=== PATIENT | female | born 1980 | race Caucasian/White ===

== ENCOUNTER 2017-05-01 18:03 | Emergency (ER) | payer SELFPAY ==
[~2017-05-01] VITALS: Ht 162.6 cm; Wt 52.2 kg
[2017-05-01 18:30] VITALS: BP 113/61
--- NOTE | 2017-05-01 18:40 | PHYS DOC ---
Adult General Chief Complaint Chief Complaint: FOREIGN BODY VAGINA [facility] HPI Patient is a 36 year old female presents the ED complaining of vaginal foreign body. Patient states on Monday night she placed a tampon and when she woke up she could not final tampon to remove. Patient does not know if she got the middle night remove the tampon. Complains of some abdominal cramping. States she is currently on her menstrual cycle. Denies fever, nausea/vomiting, vaginal discharge, dysuria, weakness, STD exposure, chest pain or shortness of breath. Review of Systems Review of Systems Constitutional: Denies fever or chills [] Eyes: Denies change in visual acuity, redness, or eye pain [] HENT: Denies nasal congestion or sore throat [] Respiratory: Denies cough or shortness of breath [] Cardiovascular: No additional information not addressed in HPI [] GI: Denies abdominal pain, nausea, vomiting, bloody stools or diarrhea [] : Denies dysuria or hematuria [] Musculoskeletal: Denies back pain or joint pain [] Integument: Denies rash or skin lesions [] Neurologic: Denies headache, focal weakness or sensory changes [] Endocrine: Denies polyuria or polydipsia [] All other systems were reviewed and found to be within normal limits, except as documented in this note. Allergies Allergies Allergies Coded Allergies Type Severity Reaction Last Updated Verified No Known Drug Allergies 05/01/17 No Physical Exam Physical Exam Constitutional: Well developed, well nourished, no acute distress, non-toxic appearance. [] HENT: Normocephalic, atraumatic, bilateral external ears normal, oropharynx moist, no oral exudates, nose normal. [] Eyes: PERRLA, EOMI, conjunctiva normal, no discharge. [] Neck: Normal range of motion, no tenderness, supple, no stridor. [] Cardiovascular:Heart rate regular rhythm, no murmur [] Lungs & Thorax: Bilateral breath sounds clear to auscultation [] Abdomen: Bowel sounds normal, soft, no tenderness, no masses, no pulsatile masses. [] EXAM: NORMAL EXTERNAL EXAM. MENSTRUAL CYCLE BLOOD NOTED. CERVIX NORMAL OS CLOSED. NO CMT. NO VISIBLE FOREIGN BODY. Skin: Warm, dry, no erythema, no rash. [] Back: No tenderness, no CVA tenderness. [] Extremities: No tenderness, no cyanosis, no clubbing, ROM intact, no edema. [] Neurologic: Alert and oriented X 3, normal motor function, normal sensory function, no focal deficits noted. [] Psychologic: Affect normal, judgement normal, mood normal. [] Current Patient Data Vital Signs Vital Signs Date Time Temp Pulse Resp B/P (MAP) Pulse Ox O2 Delivery O2 Flow Rate FiO2 05/01/17 18:30 97.8 84 16 94 Room Air 97.8 EKG EKG [] Radiology/Procedures Radiology/Procedures [] Course & Med Decision Making Course & Med Decision Making Pertinent Labs and Imaging studies reviewed. (See chart for details) []Normal exam. No foreign body. Patient states she probably removed it in the middle of the night and forgot. Patient is currently on her menstrual cycle. No abdominal pain, fever or systemic symptoms. Discussed signs and symptoms to return to the ED. 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 Patient understands and agrees with plan. Dragon Disclaimer Dragon Disclaimer This electronic medical record was generated, in whole or in part, using a voice recognition dictation system. Departure Departure Impression: Primary Impression: Foreign body of vagina Disposition: HOME, SELF-CARE Condition: STABLE Referrals: UNKNOWN PCP NAME (PCP) WANG CERDA MD Patient Instructions: Vaginal Foreign Body-Brief ELAINA EDWARDS May 01, 2017 18:40
[2017-05-06] MEDS ORDERED: METR500T8 PO (16:37)
[2017-05-06] MEDS ORDERED: SULF1TAB24 PO (16:37)
== END 2017-05-01 19:05 | disposition home or self-care (01) ==
LOC: ER 18:03
DX: T19.2XXA Foreign body in vulva and vagina, initial encounter (principal); X58.XXXA Exposure to other specified factors, initial encounter; Y93.89 Activity, other specified; Y92.89 Other specified places as the place of occurrence of the external cause; Y99.8 Other external cause status
CPT/HCPCS: 99283

== ENCOUNTER 2020-03-14 17:40 | Emergency (ER) | payer SELFPAY ==
[~2020-03-14] VITALS: Ht 162.6 cm; Wt 55.0 kg
[~2020-03-14 17:40] MED LIST: METR-34 PO; SULF1TAB24 PO
[2020-03-14 17:45] VITALS: BP 143/72
[2020-03-14 18:10] LABS: BILIRUBIN,URINE MODERATE (NEG); CLARITY,URINE TURBID; COLOR,URINE RED; NITRITE,URINE POSITIVE (NEG); PH,URINE 5.5 (<5.0-8.0); PROTEIN,URINE >=300 mg/dL (NEG-TRACE)
[2020-03-14 18:27] LABS: BACTERIA,URINE 0 /HPF (0-FEW); RBC,URINE TNTC /HPF (0-2); WBC,URINE TNTC /HPF (0-4)
[2020-03-14] MEDS ORDERED: PHEN100T82 PO (18:32)
[2020-03-14] MEDS ORDERED: CEPH-264 PO (18:32)
--- NOTE | 2020-03-14 18:32 | PHYS DOC ---
Past Medical History Past Medical History: No Pertinent History (SHANDRA LYNN AESTHETICS INSTRUCTOR) Past Surgical History: Tubal ligation, Other Additional Past Surgical Histo: R ACL REPAIR (SHANDRA LYNN AESTHETICS INSTRUCTOR) Smoking Status: Current Every Day Smoker Alcohol Use: Occasionally Drug Use: None, Marijuana (SHANDRA LYNN APRN) General Adult EDM: Chief Complaint: BLOOD IN URINE HPI: HPI: Patient is a 39 year old female who presents with 3 hours ago she was at work and began having urinary frequency when she would wipe after going the bathroom she is also blood on the toilet paper. She states that she is also having some burning in her low mid abdomen and it does burn and hurt at the end of her stream. She states she is having a lot of frequency and pressure in her low mid abdomen. Patient denies nausea, vomiting, back pain, diarrhea, fever, dizziness, headache, vaginal discharge, chest pain, shortness of air. She denies any medical history and denies taking any medications. (SHANDRA LYNN AESTHETICS INSTRUCTOR) Review of Systems: Review of Systems: Constitutional: Denies fever or chills. [] Eyes: Denies change in visual acuity. [] HENT: Denies nasal congestion or sore throat. [] Respiratory: Denies cough or shortness of breath. [] Cardiovascular: Denies chest pain or edema. [] GI: + Low mid abdominal pain, denies nausea, vomiting, bloody stools or diarrhea. [] : + dysuria. [] Musculoskeletal: Denies back pain or joint pain. [] Integument: Denies rash. [] Neurologic: Denies headache, focal weakness or sensory changes. [] Endocrine: Denies polyuria or polydipsia. [] Lymphatic: Denies swollen glands. [] Psychiatric: Denies depression or anxiety. [] (SHANDRA LYNN AESTHETICS INSTRUCTOR) Heart Score: Risk Factors: Risk Factors: DM, Current or recent (<one month) smoker, HTN, HLP, family history of CAD, obesity. Risk Scores: Score 0 - 3: 2.5% MACE over next 6 weeks - Discharge Home Score 4 - 6: 20.3% MACE over next 6 weeks - Admit for Clinical Observation Score 7 - 10: 72.7% MACE over next 6 weeks - Early Invasive Strategies (SHANDRA LYNN APRN) Allergies: Allergies: Allergies Coded Allergies Type Severity Reaction Last Updated Verified No Known Drug Allergies 05/01/17 No (SHANDRA LYNN APRN) Physical Exam: PE: Constitutional: Well developed, well nourished, no acute distress, non-toxic appearance. [] HENT: Normocephalic, atraumatic, bilateral external ears normal, oropharynx moist, no oral exudates, nose normal. [] Eyes: PERRLA, EOMI, conjunctiva normal, no discharge. [] Neck: Normal range of motion, no tenderness, supple, no stridor. [] Cardiovascular:Heart rate regular rhythm, no murmur [] Lungs & Thorax: Bilateral breath sounds clear to auscultation [] Abdomen: Bowel sounds normal, soft, no tenderness, no masses, no pulsatile masses. [] Skin: Warm, dry, no erythema, no rash. [] Back: No tenderness, no CVA tenderness. [] Extremities: No tenderness, no cyanosis, no clubbing, ROM intact, no edema. [] Neurologic: Alert and oriented X 3, normal motor function, normal sensory function, no focal deficits noted. [] Psychologic: Affect normal, judgement normal, mood normal. Normal physical exam [] (SHANDRA LYNN APRN) Current Patient Data: Labs: Laboratory Tests Test 03/14/20 18:06 POC Urine HCG, Qualitative Hcg negative (Negative) (SHANDRA LYNN APRN) EKG: EKG: [] (SHANDRA LYNN APRN) Radiology/Procedures: Radiology/Procedures: [] (SHANDRA LYNN APRN) Course & Med Decision Making: Course & Med Decision Making Pertinent Labs and Imaging studies reviewed. (See chart for details) See HPI. Abdomen is soft and nontender. There is no CVA tenderness. Alert and oriented x4. Ambulatory with a steady gait. Speaks in full clear sentences. Urinalysis shows urinary tract infection with nitrites. Patient be placed on Keflex antibiotic and Pyridium. [] (SHANDRA LYNN APRN) Dragon Disclaimer: Dragon Disclaimer: This electronic medical record was generated, in whole or in part, using a voice recognition dictation system. (SHANDRA LYNN APRN) Departure Departure Impression: Primary Impression: Urinary tract infection Qualified Codes: N30.01 - Acute cystitis with hematuria Disposition: DC HOME SELF CARE/HOMELESS Condition: STABLE Referrals: UNKNOWN PCP NAME (PCP) Patient Instructions: Urinary Tract Infection Additional Instructions: Follow-up with primary care provider. Take medications as prescribed and with food. Drink plenty of fluids. Scripts Phenazopyridine Hcl (PYRIDIUM) 100 Mg Tablet 1 TAB PO TID for urinary discomfort for 3 Days, #9 TAB 0 Refills Prov: SHANDRA LYNN APRN 03/14/20 Cephalexin (KEFLEX) 500 Mg Capsule 1 CAP PO BID for 7 Days, #14 CAP 0 Refills Prov: SHANDRA LYNN APRN 03/14/20 Attending Signature Attending Signature I have reviewed the PA/PHYSIATRIST's note and plan of care. I was available for consultation as needed during the patient's visit in the emergency department. I agree with the clinical impression, plan, and disposition. (AZRA CHOE DO) SHANDRA LYNN APRN Mar 14, 2020 18:32 AZRA CHOE DO Mar 14, 2020 18:44
[2020-03-14] MEDS ORDERED: CEPHALEXIN 250 MG CAPSULE. PO ONE (18:45)
[2020-03-14] MEDS ORDERED: PHENAZOPYRIDINE 200 MG TABLET. PO ONE (19:00)
== END 2020-03-14 19:04 | disposition home or self-care (01) ==
LOC: ER 17:40
DX: N30.01 Acute cystitis with hematuria (principal); R10.30 Lower abdominal pain, unspecified; R20.8 Other disturbances of skin sensation; F17.200 Nicotine dependence, unspecified, uncomplicated; F12.90 Cannabis use, unspecified, uncomplicated; Z98.51 Tubal ligation status; Z98.890 Other specified postprocedural states
CPT/HCPCS: 81001; 81025; 87086; 99283

== ENCOUNTER 2020-06-05 02:32 | Emergency (ER) | payer BC ==
[~2020-06-05] VITALS: Ht 162.6 cm; Wt 52.2 kg
[~2020-06-05 02:32] MED LIST changes: +CEPH-264 PO; +PHEN100T82 PO
[2020-06-05 02:50] LABS: BILIRUBIN,URINE NEGATIVE (NEG); CLARITY,URINE CLOUDY; COLOR,URINE YELLOW; NITRITE,URINE POSITIVE (NEG); PH,URINE 6.5 (<5.0-8.0); PROTEIN,URINE >=300 mg/dL (NEG-TRACE)
[2020-06-05 02:56] LABS: BACTERIA,URINE MANY /HPF (0-FEW); RBC,URINE 20-40 /HPF (0-2); WBC,URINE 20-40 /HPF (0-4)
[2020-06-05] MEDS ORDERED: CEPH-264 PO (03:12)
[2020-06-05] MEDS ORDERED: PHEN-318 PO (03:12)
--- NOTE | 2020-06-05 03:12 | PHYS DOC ---
Past Medical History Past Medical History: No Pertinent History Past Surgical History: Tubal ligation, Other Additional Past Surgical Histo: R ACL REPAIR Smoking Status: Current Every Day Smoker Alcohol Use: Occasionally Drug Use: Marijuana General Adult EDM: Chief Complaint: PAIN ON URINATION HPI: HPI: 40-year-old female presents with report of dysuria x2 to 3 days. Patient reports some associated nausea and vomiting. Patient reports she took a friend's "green antibiotic pills and Azo. Denies fever or chills. Denies flank pain. Denies trauma. Patient reports history of tubal ligation. Review of Systems: Review of Systems: Constitutional: Denies fever or chills Eyes: Denies redness or eye pain HENT: Denies nasal congestion or sore throat Respiratory: Denies cough or shortness of breath Cardiovascular: Denies chest pain or palpitations GI:Reports suprapubic abdominal pain, nausea, and vomiting : Reports dysuria; denies hematuria Musculoskeletal: Denies back pain or joint pain Integument: Denies rash or skin lesions Neurologic: Denies headache, focal weakness or sensory changes Complete systems were reviewed and found to be within normal limits, except as documented in this note. Allergies: Allergies: Allergies Coded Allergies Type Severity Reaction Last Updated Verified No Known Drug Allergies 05/01/17 No Physical Exam: PE: Constitutional: Well developed, well nourished, no acute distress, non-toxic appearance HENT: Normocephalic, atraumatic Eyes: Conjunctiva normal, no discharge Neck: Normal range of motion, no tenderness, supple Lungs & Thorax: No respiratory distress, equal chest rise and fall Abdomen: Soft, suprapubic tenderness Skin: Warm, dry, no erythema, no rash Extremities: No tenderness, ROM intact, no edema Neurologic: Alert and oriented X 3, no focal deficits noted Psychologic: Affect normal, judgment normal Current Patient Data: Labs: Laboratory Tests Test 06/05/20 02:45 06/05/20 02:46 Urine Collection Type Unknown Urine Color Yellow Urine Clarity Cloudy Urine pH 6.5 (<5.0-8.0) Urine Specific [place] 1.015 (1.000-1.030) Urine Protein >=300 mg/dL (NEG-TRACE) Urine Glucose (UA) Negative mg/dL (NEG) Urine Ketones (Stick) Negative mg/dL (NEG) Urine Blood Large (NEG) Urine Nitrite Positive (NEG) Urine Bilirubin Negative (NEG) Urine Urobilinogen Dipstick 1.0 mg/dL (0.2 mg/dL) Urine Leukocyte Esterase Moderate (NEG) Urine RBC 20-40 /HPF (0-2) Urine WBC 20-40 /HPF (0-4) Urine Squamous Epithelial Cells Mod /LPF Urine Bacteria Many /HPF (0-FEW) Urine Mucus Mod /LPF POC Urine HCG, Qualitative Hcg negative (Negative) Vital Signs: Vital Signs Date Time Temp Pulse Resp B/P (MAP) Pulse Ox O2 Delivery O2 Flow Rate FiO2 06/05/20 02:43 98.7 89 134/68 (90) 98 Room Air 98.7 EKG: EKG: [] Radiology/Procedures: Radiology/Procedures: [] Course & Med Decision Making: Course & Med Decision Making Pertinent Lab studies reviewed. (See chart for details) Patient presents with HPI and physical exam concerning for acute UTI. Symptomatic treatment provided. UA with signs of infection. Urine negative. Empiric antibiotic provided. Patient stable for discharge with outpatient follow-up with PCP. Discussed findings and plan with patient, who acknowledges understanding and agreement. Mya Disclaimer: Spotjournal Disclaimer: This electronic medical record was generated, in whole or in part, using a voice recognition dictation system. Departure Departure Impression: Primary Impression: Urinary tract infection Qualified Codes: N30.00 - Acute cystitis without hematuria Additional Impression: Nausea Disposition: 01 DC HOME SELF CARE/HOMELESS Condition: STABLE Referrals: NO PCP (PCP) Patient Instructions: Clear Liquid Diet, Oahv-yb-Fxit, Nausea and Vomiting, Wuqc-gn-Nfpr, Urinary Tract Infection, Owdf-ue-Evjz Scripts Ondansetron (ONDANSETRON ODT) 4 Mg Tab.rapdis 1 TAB PO PRN Q6-8HRS PRN for NAUSEA, #16 TAB Prov: AZRA CHOE DO 06/05/20 Cephalexin (KEFLEX) 500 Mg Capsule 500 MG PO TID for 7 Days, #21 CAP Prov: AZRA CHOE DO 06/05/20 Phenazopyridine Hcl (PYRIDIUM) 200 Mg Tablet 200 MG PO Q8HRS PRN for DYSURIA for 2 Days, #6 TAB Prov: AZRA CHOE DO 06/05/20 AZRA CHOE DO Jun 05, 2020 03:12
[2020-06-05] MEDS ORDERED: ONDA4TAB12 PO (03:16)
[2020-06-05] MEDS ORDERED: ONDANSETRON ODT 4 MG TAB.RAPDIS. PO ONE (03:30)
[2020-06-05 03:49] VITALS: BP 157/93
[2020-06-05] MEDS ORDERED: CEPHALEXIN 250 MG CAPSULE. PO ONE (04:00)
[2020-06-05] MEDS ORDERED: PHENAZOPYRIDINE 200 MG TABLET. PO ONE (04:00)
== END 2020-06-05 03:48 | disposition home or self-care (01) ==
LOC: ER 02:32
DX: N30.00 Acute cystitis without hematuria (principal); R30.0 Dysuria; R11.2 Nausea with vomiting, unspecified; R10.2 Pelvic and perineal pain; R11.0 Nausea; F12.90 Cannabis use, unspecified, uncomplicated; F17.200 Nicotine dependence, unspecified, uncomplicated; Z98.51 Tubal ligation status; Z98.890 Other specified postprocedural states
CPT/HCPCS: 81001; 81025; 87086; 99284

== ENCOUNTER 2021-02-03 06:28 | Day surgery (SDC) | payer BC ==
[~2021-02-03] VITALS: Ht 162.6 cm; Wt 57.0 kg
[~2021-02-03 06:28] MED LIST changes: +HYDROmorphone 2 MG/ML VIAL IVP PRN; +IV RINGERS,LACTATED 1000ML 1,000 ML IV SCH; +MORPHINE SULFATE 2 MG/ML INJ. IVP PRN; +ONDA4TAB12 PO; +PHEN-318 PO; +PROCHLORPERAZINE 10 MG/2 ML VIAL. IVP PRN; +TRAZ-118 PO; +fentaNYL PF VIAL 100 MCG/2 ML VIAL IVP PRN
[2021-02-03] MEDS ORDERED: VASOPRESSIN 20 UNIT/ML VIAL. ONE (07:05)
[2021-02-03] MEDS ORDERED: FERRIC SUBSULFATE 8 ML SOL.W.APPL TP ONE (07:05)
[2021-02-03] MEDS ORDERED: GELATIN SPONGE SIZE 100. ONE (07:05)
[2021-02-03] MEDS ORDERED: MIDAZOLAM HCL/PF 2 MG/2 ML VIAL. ONE (07:35)
[2021-02-03] MEDS ORDERED: fentaNYL PF VIAL 100 MCG/2 ML VIAL ONE ×2 (07:36→09:09)
--- NOTE | 2021-02-03 07:46 | PDOC1 ---
[facility] H&P Date of Admission: Date of Admission: History of Present Illness: 40y presents for scheduled surgery. The pt was seen on 12/23/20 for eval and tx of dysplasia. The pt had a LSIL/HPV pos pap. The pt's only h/o dysplasia was at 16yo were cryo was performed. The pt has had no dysplasia since. Her colopo revealed the following A. Cervix, "cervical biopsy at 12 and 2", biopsy: High grade squamous intraepithelial lesion (HSIL, KETTY II). See comment. B. Endocervix, "endocervical curettage": Fragments of benign lower uterine segment and benign Endocervical glands. 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 suicide. Medications: Meds: Current Medications Medications (Trade) Dose Ordered Sig/Racquel Route PRN Reason Start Time Stop Time Status Last Admin Dose Admin Ringer's Solution 1,000 ml @ 30 mls/hr Q24H IV 02/03/21 06:00 02/03/21 17:59 02/03/21 06:59 Allergies: Coded Allergies: No Known Drug Allergies (Unverified , 02/03/21) Physical Exam: Vital Signs: Vital Signs Date Time Temp Pulse Resp B/P (MAP) Pulse Ox O2 Delivery O2 Flow Rate FiO2 02/03/21 06:57 97.5 76 20 105/62 99 Room Air 97.5 PE: GENERAL: No apparent distress. Alert and oriented. HEENT: Head normocephalic, atraumatic. NECK: Supple LUNGS: Clear to auscultation. HEART: RRR, S1, S2 present, pulses intact ABDOMEN: Soft, positive bowel sounds. EXTREMITIES: No cyanosis or edema. NEUROLOGIC: Normal speech, normal tone PSYCHIATRIC: Normal affect, normal mood. SKIN: No ulceration. Labs: Laboratory Tests Test 02/03/21 06:05 POC Urine HCG, Qualitative Hcg negative (Negative) Assessment & Plan: A/P 40y with LSIL/ HPV pos pap 1.) KETTY II - LSIL/HPV pos pap, scheduled for CKC 2.) Contraception - BTL 3.) Tob use - discuss cessation AZRA MORENO MD Feb 03, 2021 07:46
[2021-02-03] MEDS ORDERED: KETOROLAC 30 MG/ML VIAL. ONE (08:26)
[2021-02-03] MEDS ORDERED: PROPOFOL 10 MG/ML (20ML) VIAL. IV ONE (08:26)
[2021-02-03] MEDS ORDERED: SEVOFLURANE 31 TO 60 MINUTES. IH ONE (08:26)
[2021-02-03] MEDS ORDERED: LIDOCAINE 2% PF 5 ML VIAL. ONE (08:26)
[2021-02-03] MEDS ORDERED: OXYC1TAB15 PO (08:53)
[2021-02-03] MEDS ORDERED: IBUP-1060 PO (08:53)
--- NOTE | 2021-02-03 08:57 | PDOC4 ---
OPERATIVE NOTE: PreOp Dx: 1.) KETTY II on colpo bx and neg ECC, 2.) LSIL/HPV pos pap PostOp Dx: same Procedure: CKC, ECC Surgeon: Anuradha Moreno Anesthesia: LMA EBL: 100 cc Fluids: 700 cc UOP: 20 cc Complications: None Specimen: cone and ECC Findings: no obvious lesions AZRA MORENO MD Feb 03, 2021 08:57
--- NOTE | 2021-02-03 09:30 | OP ---
DATE OF SURGERY: 02/03/2021 PREOPERATIVE DIAGNOSES: 1. Cervical intraepithelial neoplasia 2 on colposcopic biopsies with a negative ECC. 2. LSIL HPV positive Pap. POSTOPERATIVE DIAGNOSES. 1. Cervical intraepithelial neoplasia 2 on colposcopic biopsies with a negative ECC. 2. LSIL HPV positive Pap. PROCEDURE: Cold knife cone with ECC. SURGEON: Bandar Ayala MD. ANESTHESIA: LMA. ESTIMATED BLOOD LOSS: 100 mL. FLUIDS: 700 mL. URINE OUTPUT: 20 mL. COMPLICATIONS: None. SPECIMENS: Cone and ECC. FINDINGS: No obvious lesions. DESCRIPTION OF PROCEDURE: The patient was taken to the operating room where LMA was placed without difficulty. The patient was prepped and draped in normal sterile fashion. A posterior weighted speculum was placed in the patient's vagina and a right angle retractor was used to visualize the anterior lip of the cervix, which was then grasped with a single tooth tenaculum. At that point, the lateral edges of the cervix were then tagged with a 2-0 Vicryl. This was then performed on the left side where another 2-0 Vicryl was then tagged at the lateral portion of the cervix. At that point, the cervix was circumferentially injected with vasopressin around the transformation zone. An 11 blade was then used to circumferentially cut the cervix just lateral to the transformation zone. At that point, the specimen was grabbed with Allis clamps and scissors were used to cut the cone specimen out. The specimen was then tagged at 12 o'clock. An ECC was then performed and collected. The cervical bed was then cauterized until hemostasis was achieved. At that point, Gelfoam was then placed in the cervical bed. The two lateral stitches were tied together to keep the Gelfoam in place. The tenaculums were then removed as well as the speculum. Good hemostasis was noted. The patient was then taken to recovery room in stable condition. WILNER DR: Lois TID: [id number]
[2021-02-03 09:37] VITALS: BP 98/63
[2021-02-03] MEDS ORDERED: oxyCODONE/APAP 5/325 1 TAB TABLET PO ONE (09:45)
--- NOTE | 2021-02-05 09:12 | PATHOLOGY ---
[facility] Accession Number: [id number] . 01 Material submitted: . PART A: endocervix - ENDOCERVICAL CURETTINGS PART B: cervix - COLD KNIFE CONE . 01 Clinical history: . ABNORMAL PAP COLD KNIFE CONE POSITIVE PAP SMEAR . 02 Diagnosis: A. Endocervical curettings: - Blood containing strips of benign endocervical epithelium and few segments of benign endocervical mucosa and endometrial tissue. . B. Uterine cervix, cold knife conization: - Moderate to severe dysplasia (KETTY II-III), focal, involving the 6-9:00 region. - Endocervical, exocervical, and deep margins negative for dysplasia. - Chronic cervicitis with focal squamous metaplasia. - Nabothian cysts. (JPM:wilbur; 02/04/2021) [facility] [place] 02/04/2021 1656 Local . 02 Comment: Sections of the cervical conization show focal moderate to severe dysplasia (KETTY II-III) in the 6-9:00 o'clock region. There are other areas of focal mild to moderate dysplasia. The endocervical, exocervical, and deep margins are negative for dysplasia. (JPM:wilbur; 02/04/2021) . 02 Electronically signed: . Stuart Mcintosh MD, Pathologist NPI- [id number] . 01 Gross description: . A. The specimen is received in formalin, labeled "Steffany Grider, endocervical curettings" and consists of multiple fung hemorrhagic soft irregular tissues aggregating 1.0 x 0.6 x 0.1 cm which are filtered and submitted in toto in A1. . B. The specimen is received in formalin, labeled "Steffany Grider, cold knife cone" and consists of an intact portion of cervix (2.3 x 2.0 x 1.9 cm) that displays a central, slitlike and patent os (0.9 cm in diameter). The mucosa is fung-gomez and dusky. The specimen has been previously oriented with a stitch, however neither the specimen container or the requisition designates the stitch location. The stitch is arbitrarily designated by pathologists' administrative sales assistant as 12:00. The ectocervical margin is inked blue and the endocervical margin is inked black. The specimen is radially sectioned and submitted sequentially, entirely as follows: B1-B2: Cervix, 12:00 to 3:00, entirely submitted B3-B4: Cervix, 3:00 to 6:00, entirely submitted B5-B6: Cervix, 6:00 to 9:00, entirely submitted B7-B9: Cervix, 9:00 to 12:00, entirely submitted (NOORVIK; 02/03/2021) DKA/DKA 02/03/2021 1800 Local . 02 Pathologist provided ICD-10: N87.1, N72, N87.9, N88.8 . 02 CPT . 029183, [id number] Specimen Comment: A courtesy copy of this report has been sent to [phone], [phone] Specimen Comment: [id number] Specimen Comment: Report sent to / DR ORR Specimen Comment: A duplicate report has been generated due to demographic updates. Performed at: 01 [facility] [address], [place] [id number] MD Marcial Vera MD Phone: [phone] Performed at: 02 [facility] [address] [place], [place] [id number] MD Stuart Mcintosh MD Phone: [phone]
== END 2021-02-03 10:05 | disposition home or self-care (01) ==
LOC: SURG 06:28
PROVIDERS: ATTEND Obstetrics & Gynecology
DX: R87.810 Cervical high risk human papillomavirus (HPV) DNA test positive (principal); N87.1 Moderate cervical dysplasia; N72 Inflammatory disease of cervix uteri; N87.9 Dysplasia of cervix uteri, unspecified; N88.8 Other specified noninflammatory disorders of cervix uteri; F17.210 Nicotine dependence, cigarettes, uncomplicated; Z87.440 Personal history of urinary (tract) infections; Z98.51 Tubal ligation status; Z98.890 Other specified postprocedural states; Z79.899 Other long term (current) drug therapy; Z88.8 Allergy status to other drugs, medicaments and biological substances
CPT/HCPCS: 57520; 81025; A4213; A4930; J1885; J2250; J2704; J3010; J3490; 88305; 88307